=== PATIENT | male | born 1995 | race American Indian/Alaskan Native ===

== ENCOUNTER 2018-12-24 07:52 | Emergency (ER) | payer SELFPAY ==
[2018-12-24 07:57] VITALS: BP 121/59
--- NOTE | 2018-12-24 08:40 | Emergency Department Report ---
ED Rash HPI - HPI Chief Complaint: Skin Rash Stated Complaint: RASH Time Seen by Provider: 12/24/18 08:22 Duration: 2 Days Location: Lower Extremities (inner thighs, groin) Rash Symptoms: Yes Itching, No Facial Swelling, No Tongue/Oral Swelling, No Breathing Difficulties, No Choking Sensation, No Wheezing/Dyspnea, No Peeling, No Blistering, No Fever, No Lightheaded, No Malaise, No Myalgias Severity: moderate Other History: 23-year-old male presents to ED complaining of interim chloride irritation for the past week. Patient states that rashes, no raw and inflamed in both his inner thigh groin area. The rash is not getting better and has been a week. She states she is to use Neosporin with no relief. ED Review of Systems ROS: Stated complaint: RASH Other details as noted in HPI Comment: All other systems reviewed and negative ED Past Medical Hx - Past Medical History Previous Medical History?: No - Surgical History Past Surgical History?: No - Social History Smoking Status: Light Tobacco Smoker - Medications Home Medications: Home Medications Medication Instructions Recorded Confirmed Last Taken Type Griseofulvin Ultramicrosize 250 mg PO TID #21 tablet 12/24/18 Unknown Rx Nystatin/Triamcin 1 applic TP BID #1 cream..g. 12/24/18 Unknown Rx [Nystatin-Triamcinolone Cream] Rash Exam - Exam General: Vital signs noted. No distress. Alert and acting appropriately. HEENT: No Periorbital Edema, No Conjuctival Injection, No Chemosis, No Perioral Edema, No Tongue Edema, No Uvular Edema, No Compromised Airway, No Drooling Lungs: Yes Good Air Exchange (Normal Breath Sounds), No Wheezes, No Ronchi, No Stridor, No Cough, No Labored Respirations, No Retractions, No Use of Accessory Muscles, No Other Abnormal Lung Sounds Heart: Yes Regular, No Murmur Skin: Yes Maculopapular Rash, Yes Tenderness, No Urticarial Rash, No Morbilliform rash, No Bulla(e), No Excoriations, No Weeping, No Erythema, No Edema, No Encrustations, No Other Other: Positive: Abdomen Normal, Neurologic Normal, Musculoskeletal Normal ED Course Vital Signs 12/24/18 07:54 Temperature 97.7 F Pulse Rate 51 L Respiratory 18 Rate Blood Pressure 121/59 O2 Sat by Pulse 96 Oximetry ED Medical Decision Making - Medical Decision Making 23-year-old male presents to be tinea cruris/jock itch rash Discussed all roll. Topical antifungal. Discussed [id number] anti-itch/drop powder cream. Discussed follow-up with her physician. Critical care attestation.: If time is entered above; I have spent that time in minutes in the direct care of this critically ill patient, excluding procedure time. ED Disposition Clinical Impression: Tinea cruris Disposition: DC-01 TO HOME OR SELFCARE Is pt being admited?: No Does the pt Need Aspirin: No Condition: Stable Instructions: Jock Itch (ED) Additional Instructions: Make sure to follow up with the primary care physician as discussed. Take all your medications as you've been prescribed. If you have any worsening symptoms or develop new symptoms please return to ED immediately. Prescriptions: Griseofulvin Ultramicrosize 250 mg PO TID #21 tablet Nystatin/Triamcin [Nystatin-Triamcinolone Cream] 1 applic TP BID #1 cream..g. Referrals: SUSANA DAMON MD [Primary Care Provider] - 3-5 Days [facility] [Provider Group] - 3-5 Days Forms: Work/School Release Form(ED) Time of Disposition: 08:40
== END 2018-12-24 08:49 | disposition home or self-care (01) ==
LOC: ED 07:52
DX: B35.6 Tinea cruris (principal); F17.200 Nicotine dependence, unspecified, uncomplicated
CPT/HCPCS: 99282